=== PATIENT | male | born 2000 | race Caucasian/White ===

== ENCOUNTER 2022-04-09 23:57 | Observation (INO) | payer OTHER, SELFPAY ==
[2022-04-10 00:28] LABS: #Eosinphils 0.1 thou/uL (0.0-0.7); #Lymphocytes 1.1 thou/uL (1.20-3.40); #Monocytes 0.6 thou/uL (0.11-0.59); #Neutrophils 6.8 thou/uL (1.40-6.50); %Basophils 0.1 % (0.0-1.0); %Eosinophils 0.6 % (0.0-10.0); %Lymphocytes 13.1 % (21.0-51.0); %Monocytes 6.5 % (0.0-10.0); %Neutrophils 79.6 % (42.0-75.0); Hemoglobin 14.4 g/dL (14.0-18.0); Mean Corpuscular HGB CONC 34.2 g/dL (32.0-36.0); Mean Corpuscular Volume 93.4 fL (78.0-98.0); Mean Platelet Volume 7.8 fL (7.4-10.4); Platelet Count 188 thou/uL (130-400); RBC Distribution Width 12.1 % (11.5-14.5); White Blood Cell (WBC) Count 8.5 thou/uL (4.8-10.8)
[2022-04-10 00:51] LABS: ALT (SGPT) 17 U/L (8-55); AST (SGOT) 18 U/L (5-34); Albumin 4.1 g/dL (3.5-5.0); Alkaline Phosphatase 67 U/L (40-110); Anion Gap 12 mmol/L (10-20); BUN (Urea Nitrogen) 11 mg/dL (8.9-20.6); Bilirubin, Total 0.5 mg/dL (0.2-1.2); Calc. Creatinine Clearance 0 mL/min (70-130); Calcium 8.7 mg/dL (7.8-10.44); Carbon Dioxide 24 mmol/L (22-29); Chloride 105 mmol/L (98-107); Estimated GFR 102; Globulin 2.4 g/dL (2.4-3.5); Glucose 96 mg/dL (70-105); Lipase 15 U/L (8-78); Potassium 3.7 mmol/L (3.5-5.1); Protein, Total 6.5 g/dL (6.0-8.3); Sodium 137 mmol/L (136-145)
[2022-04-10] MEDS ORDERED: Nicotine 14 MG PATCH ONE (02:14)
[2022-04-10] MEDS ORDERED: hydrALAZINE 20 MG/ML VIAL SLOW IVP PRN (03:30)
[2022-04-10] MEDS ORDERED: Ondansetron PF 4 MG/2 ML Vial IVP PRN (03:30)
[2022-04-10] MEDS ORDERED: Acetaminophen 325 MG TAB PO PRN (03:30)
[2022-04-10] MEDS ORDERED: Ondansetron ODT 4 MG TAB PO PRN (03:30)
[2022-04-10] MEDS ORDERED: Dextrose 5% in Water 1,000 ML IV PRN (03:30)
[2022-04-10] MEDS ORDERED: Dextrose 50% Abboject 50 ML SYRINGE SLOW IVP PRN (03:30)
[2022-04-10 03:52] LABS: Phosphorus 2.1 mg/dL (2.3-4.7)
[2022-04-10 03:54] LABS: Troponin I Less than 0.010 ng/mL (< 0.028)
[2022-04-10] MEDS ORDERED: levETIRAcetam 500 MG/5 ML VIAL SLOW IVP SCH ×2 (05:15→21:00)
[2022-04-10] MEDS ORDERED: Potassium Phosphate 15 MMOL in Sodium Chloride 0.9% 250 ML 250 ML IVPB SCH (06:00)
[2022-04-10] MEDS ORDERED: levETIRAcetam 500 MG/5 ML VIAL ONE ×2 (06:37→08:41)
[2022-04-10 07:46] LABS: Troponin I Less than 0.010 ng/mL (< 0.028)
[2022-04-10] MEDS ORDERED: Famotidine 20 MG TAB ONE (08:41)
[2022-04-10] MEDS ORDERED: Famotidine 20 MG TAB PO SCH (09:00)
[2022-04-10] MEDS ORDERED: Nicotine 21 MG PATCH TD SCH (09:00)
[2022-04-10] MEDS ORDERED: levETIRAcetam in NS 500 MG in Premix Bag 1 BAG IVPB SCH (09:00)
[2022-04-10 11:19] LABS: Bacteria/HPF None Seen HPF (None Seen); Bilirubin Negative (Negative); Blood, Urine Negative (Negative); Clarity Clear (Clear); Glucose, Urine (Dipstick) Normal (Negative); Ketone, Urine Negative (Negative); Leukocyte 75 Leu/uL (Negative); Nitrite Negative (Negative); Protein, Urine (Dipstick) Negative (Neg-Trace); RBC/HPF 0-3 HPF (0-3); Specific Gravity, Urine 1.007 (1.002-1.036); Squamous Epithelial None Seen HPF (0-3); Urobilinogen Normal mg/dL (Less than 2)
[2022-04-10 11:22] LABS: Urine Culture Reflex Yes Yes
[2022-04-10 11:27] LABS: Amphetamine Not Detected (NotDetected); Barbiturates Screen Not Detected (NotDetected); Benzodiazepine Screen Not Detected (NotDetected); Cocaine Metabolite Screen Detected (NotDetected); Methadone Not Detected (NotDetected); Methamphetamine Not Detected (NotDetected); Opiate Screen Not Detected (NotDetected); Oxycodone Screen Not Detected (NotDetected); Phencyclidine (PCP) Not Detected (NotDetected); THC/Cannabinoid Screen Detected (NotDetected); Tricyclic Screen Not Detected (NotDetected)
[2022-04-10 13:03] VITALS: BMI 29.2
[2022-04-10] MEDS ORDERED: Iopamidol-370 76% 500 ML 1 ML ONE (13:57)
[2022-04-10 15:48] VITALS: BP 114/69; TEMP 97.4
== END 2022-04-10 17:00 | disposition home or self-care (01) ==
LOC: ERS 23:57 → ERHOLD 04-10 03:02 → 2SW 04-10 12:58
PROVIDERS: ADMIT Specialist; ATTEND Specialist
DX: R55 Syncope and collapse (principal); S00.03XA Contusion of scalp, initial encounter; F17.210 Nicotine dependence, cigarettes, uncomplicated; Z20.822 Contact with and (suspected) exposure to COVID-19; V89.2XXA Person injured in unspecified motor-vehicle accident, traffic, initial encounter; W22.8XXA Striking against or struck by other objects, initial encounter; Y93.H3 Activity, building and construction; Y92.411 Interstate highway as the place of occurrence of the external cause; Y99.0 Civilian activity done for income or pay
CPT/HCPCS: 36415; 70450; 71260; 72125; 74177; 80053; 80306; 80307; 81001; 83690; 83735; 84100; 84146; 84484; 85025; 87086; 93005; 93306; 95712; 95819; 95957; 96374; 96375; G0378; G0390; J1953; J7050; Q9967; U0003; U0005